=== PATIENT | female | born 1975 | race Hispanic/Latino ===

== ENCOUNTER 2018-01-31 21:21 | Emergency (ER) | payer BC ==
[2018-01-31 21:36] VITALS: BP 136/91; PULSE 73; RESP 16; TEMP 98.4; O2SAT 100
--- NOTE | 2018-01-31 21:51 | ED PDOC ---
HPI: Eye Injury/Pain Time Seen by Provider: 01/31/18 21:41 Chief Complaint (Nursing): Eye Problem Chief Complaint (Provider): Eye Injury History Per: Patient History/Exam Limitations: no limitations Onset/Duration Of Symptoms: Hrs (x 2) Current Symptoms Are (Timing): Still Present Additional Complaint(s): Cely is a 42 y/o female who presents to the ED complaining of eye pain after her shot a rubber band into her left eye at 20:00 today. Patient states she is unsure of whether the object actually hit her eye or her eyelid. She complains of eye "strain" and pain but denies vision changes, and she does not feel like she has a foreign object in her eye. Patient does not wear contacts. Past Medical History Reviewed: Historical Data, Nursing Documentation, Vital Signs Vital Signs: Last Vital Signs Temp 98.4 F 01/31/18 21:34 Pulse 73 01/31/18 21:34 Resp 16 01/31/18 21:34 BP 136/91 H 01/31/18 21:34 Pulse Ox 100 01/31/18 21:34 - Medical History PMH: HTN - Surgical History Other surgeries: ovarian cyst removal with subsequent surgery for repair of internal bleeding - Family History Family History: States: No Known Family Hx - Living Arrangements Living Arrangements: With Family - Social History Current smoker - smoking cessation education provided: No Alcohol: Social Drugs: Denies - Allergies Allergies/Adverse Reactions: Allergies Allergy/AdvReac Type Severity Reaction Status Date / Time No Known Allergies Allergy Verified 01/31/18 21:34 Review of Systems ROS Statement: Except As Marked, All Systems Reviewed And Found Negative Eyes: Positive for: Pain (to left eye), Other (no FB sensation). Negative for: Vision Change, Conjunctivae Inflammation Neurological: Negative for: Headache, Dizziness Physical Exam - Reviewed Nursing Documentation Reviewed: Yes Vital Signs Reviewed: Yes - Physical Exam Appears: Positive for: Well, Non-toxic, No Acute Distress Skin: Positive for: Normal Color. Negative for: Rash Eye Exam: Positive for: EOMI, PERRL, Other (Left eye examination is unremarkable , no conjunctival erythema, no gross foreign body, no eyelid edema or tenderness ) ENT: Positive for: Normal ENT Inspection Extremity: Positive for: Normal ROM Neurologic/Psych: Positive for: Alert, Oriented - ECG O2 Sat by Pulse Oximetry: 100 (RA) Pulse Ox Interpretation: Normal Medical Decision Making Medical Decision Making: Time: 21:50 Initial Impression: 42 y/o female with eye injury Procedure note: 2 drops of tetracaine were applied to the left eye followed by stain with fluorescein strip. Examination under UV light demonstrates no foreign body or corneal abrasion. Procedure tolerated well by patient with no complications. Patient declined pain medication in ED. Advised NSAIDs as needed and ophthalmology follow-up, referral given. Scribe Attestation: Documented by Willam Castillo, acting as a scribe for Domitila Giordano PA-C. Provider Scribe Attestation: All medical record entries made by the Scribe were at my direction and personally dictated by me. I have reviewed the chart and agree that the record accurately reflects my personal performance of the history, physical exam, medical decision making, and the department course for this patient. I have also personally directed, reviewed, and agree with the discharge instructions and disposition. Disposition - Clinical Impression Clinical Impression: Eye injury - Patient ED Disposition Is Patient to be Admitted: No Counseled Patient/Family Regarding: Diagnosis, Need For Followup - Disposition Referrals: Joon Diaz MD [Staff Provider] - Disposition: Routine/Home Disposition Time: 22:05 Condition: STABLE Additional Instructions: Take Tylenol or Motrin for pain as needed. Follow-up with eye doctor for any persistent symptoms. Instructions: Eye Contusion (DC) Forms: [employer] ([place]ovenian)
[2018-01-31] MEDS ORDERED: Fluorescein 1 mg Ophthalmic Strip ONE (21:53)
== END 2018-01-31 22:17 | disposition home or self-care (01) ==
LOC: H.ER 21:21
DX: S05.92XA Unspecified injury of left eye and orbit, initial encounter (principal); W22.8XXA Striking against or struck by other objects, initial encounter; Y92.89 Other specified places as the place of occurrence of the external cause; I10 Essential (primary) hypertension